=== PATIENT | female | born 1985 | race Hispanic/Latino ===

== ENCOUNTER 2021-01-17 15:55 | Emergency (ER) | payer MEDICAID ==
[~2021-01-17] VITALS: Ht 152.4 cm; Wt 127.0 kg
[2021-01-17] MEDS ORDERED: DIPHENHYDRAMINE HCL 25 MG CAPSULE PO ONE (16:30)
[2021-01-17] MEDS ORDERED: FAMOTIDINE 20MG TAB PO ONE (16:30)
[2021-01-17] MEDS ORDERED: PREDNISONE 20 MG TABLET PO ONE (17:00)
[2021-01-17] MEDS ORDERED: PRED20TA3 PO (17:52)
[2021-01-17] MEDS ORDERED: FAMO-136 PO (17:52)
[2021-01-17] MEDS ORDERED: CETI1SOL17 PO (17:52)
[2021-01-17 17:59] VITALS: BP 140/79
== END 2021-01-17 18:20 | disposition home or self-care (01) ==
LOC: EDH 15:55
DX: T78.3XXA Angioneurotic edema, initial encounter (principal); E11.9 Type 2 diabetes mellitus without complications; E66.9 Obesity, unspecified; Z79.52 Long term (current) use of systemic steroids; Z79.84 Long term (current) use of oral hypoglycemic drugs; Z68.43 Body mass index [BMI] 50.0-59.9, adult
CPT/HCPCS: 82948; 99284; Q0163

== ENCOUNTER → 2022-05-27 | Outpatient (CLI) | payer MEDICAID ==
[~2022-05-27] MED LIST: CETI1SOL17 PO; FAMO-136 PO; PRED20TA3 PO
== END | disposition home or self-care (01) ==
LOC: RAH 08:47
PROVIDERS: ATTEND Pediatrics
DX: R12 Heartburn (principal)
CPT/HCPCS: 74240

== ENCOUNTER → 2022-09-21 | Outpatient (CLI) | payer MEDICAID ==
[~2022-09-21] MED LIST changes: +ALBU90AE2 IH; +BACL10TA PO; -CETI1SOL17 PO; +DIATR MEGLU/DIATRIZOATE SODIUM 30 ML BOTTLE ONE; -FAMO-136 PO; +FENO145T26 PO; +MEDR10TA11 PO; +METF-444 PO; +NAPR-1023 PO; +ONDA4TAB10 PO; -PRED20TA3 PO; +ROSU20TA73 PO; +SUCR1TAB2 PO
== END | disposition home or self-care (01) ==
LOC: RAH 08:16
PROVIDERS: ATTEND Pediatrics
DX: K44.9 Diaphragmatic hernia without obstruction or gangrene (principal); R13.10 Dysphagia, unspecified; K21.9 Gastro-esophageal reflux disease without esophagitis
CPT/HCPCS: 74240; Q9963